=== PATIENT | female | born 1960 | race American Indian/Alaskan Native ===

== ENCOUNTER 2017-06-19 06:54 | Emergency (ER) | payer MEDICARE ==
[2017-06-19 07:00] VITALS: BP 148/89
== END 2017-06-19 06:59 | disposition left against medical advice (07) ==
LOC: ED 06:54
DX: M54.2 Cervicalgia (principal); Z53.21 Procedure and treatment not carried out due to patient leaving prior to being seen by health care provider

== ENCOUNTER 2017-06-25 06:00 | Emergency (ER) | payer MEDICARE ==
[2017-06-25 06:06] VITALS: BP 125/74
--- NOTE | 2017-06-25 08:42 | Emergency Department Report ---
ED Fall HPI - General Chief Complaint: Fall Stated Complaint: FALL Time Seen by Provider: 06/25/17 08:21 Source: patient, family Mode of arrival: Ambulatory Limitations: No Limitations - History of Present Illness Initial Comments: Patient reported that she fell off a ladder 10 feet 1 week ago. She says she came to the hospital but she could not wait so she left. She is complaining that her neck and her shoulders hurting. Pain is 4 out of 10. She says she doesn't feel like anything is broken and she doesn't want any x-ray she just wants to be checked out and some medication for her pain. Denies any numbness or tingling to extremities. Denies any pain to her back. Pain is achy in. She says she took [id number] pain medication but it has not helped.. Denies any head injury, loss of consciousness, blurred vision, dizziness. She said when she fell she fell on her left shoulder area. She said the pain is intermittent and worse with movement and less with resting. Patient has a history of depression and migraine headache. He also has a history of arthritis that she said it's all over and she says she usually takes hydrocodone , Flexeril and tramadol. Denies any loss of bowel or bladder control. It is located to the left side of her neck and left shoulder and left hand. Complaint: fall Onset/Timin -: week(s) Fall From: other (10 feet off ladder) When Fall Occurred: other (1 week ago) Fall Witnessed: yes, by family Place Fall Occurred: home Loss of Consciousness: none Prolonged Down Time?: no Symptoms Prior to Fall: none Location: neck Location - Extremities: Left: Shoulder, Hand Severity: mild Severity scale (0 -10): 3 Quality: aching Context: tripped/slipped Associated Symptoms: neck pain. denies: headache, numbness, weakness, chest paint, shortness of breath, abdominal pain, hematuria, unable to walk, lightheaded, vertigo, confusion - Related Data Previous Rx's Medication Instructions Recorded Last Taken Type Diclofenac Dr [Voltaren Dr] 75 mg PO Q12H #30 tablet 11/13/13 Unknown Rx HYDROcodone/APAP 5-325 [[place] 1 each PO Q6HR PRN #20 tablet 11/13/13 Unknown Rx 5-325 mg TAB] FLUoxetine [Prozac] 20 mg PO QDAY #30 capsule 02/13/14 Unknown Rx LORazepam [Ativan] 1 mg PO TID PRN #10 tablet 02/13/14 Unknown Rx Olanzapine [Zyprexa] 15 mg PO QDAY #30 tablet 02/13/14 Unknown Rx traZODone [Desyrel] 100 mg PO HS #30 tablet 02/13/14 Unknown Rx ALBUTEROL Inhaler [ProAir HFA 2 puff IH QID PRN #1 inhalation 04/13/14 Unknown Rx Inhaler] Prednisone [Prednisone 10 mg 10 mg PO .TAPER #1 tab.ds.pk 04/13/14 Unknown Rx (6-Day Pack, 21 Tabs)] SUMAtriptan SUCCINATE [Imitrex] 25 mg PO QDAY #20 tablet 04/13/14 Unknown Rx Cyclobenzaprine [Flexeril 10 MG 10 mg PO TID PRN #20 tablet 04/21/14 Unknown Rx TAB] HYDROcodone/APAP 5-325 [[place] 1 each PO Q6HR PRN #10 tablet 04/21/14 Unknown Rx 5/325] Promethazine [Phenergan] 25 mg PO Q6H PRN #10 tablet 04/21/14 Unknown Rx Amoxicillin/K Clav Tab [Augmentin 1 tab PO Q12HR #20 tab 02/15/15 Unknown Rx 875MG TAB] Cyclobenzaprine HCl [Flexeril 5 MG 5 mg PO Q8HR #15 tablet 07/17/15 Unknown Rx TAB] traMADol [Ultram 50 MG tab] 50 mg PO Q6HR PRN #15 tablet 07/17/15 Unknown Rx traMADol [Ultram 50 MG tab] 50 mg PO Q6HR PRN 5 Days #20 tablet 06/25/17 Unknown Rx Allergies Allergy/AdvReac Type Severity Reaction Status Date / Time ibuprofen Allergy Itching Verified 04/18/14 09:37 ED Review of Systems ROS: Stated complaint: FALL Other details as noted in HPI Comment: All other systems reviewed and negative Constitutional: no symptoms reported Eyes: denies: eye pain, vision change ENT: denies: epistaxis Respiratory: no symptoms reported Cardiovascular: denies: chest pain, palpitations, dyspnea on exertion, orthopnea , edema, syncope, paroxysmal nocturnal dyspnea Gastrointestinal: denies: abdominal pain, nausea, vomiting, diarrhea, constipation Genitourinary: denies: urgency, dysuria, frequency, hematuria, discharge Musculoskeletal: arthralgia, myalgia. denies: back pain Skin: denies: rash Neurological: denies: headache, weakness, numbness, paresthesias, confusion, abnormal gait, vertigo ED Past Medical Hx - Past Medical History Previous Medical History?: Yes Hx Headaches / Migraines: Yes Hx Psychiatric Treatment: Yes (depression) Additional medical history: depression - Surgical History Past Surgical History?: Yes Additional Surgical History: Tubal ligation - Family History Family history: no significant - Social History Smoking Status: Current Every Day Smoker Substance Use Type: None - Medications Home Medications: Home Medications Medication Instructions Recorded Confirmed Last Taken Type Diclofenac Dr [Chivo Dr] 75 mg PO Q12H #30 tablet 11/13/13 07/05/15 Unknown Rx HYDROcodone/APAP 5-325 [[place] 1 each PO Q6HR PRN #20 tablet 11/13/13 07/05/15 Unknown Rx 5-325 mg TAB] FLUoxetine [Prozac] 20 mg PO QDAY #30 capsule 02/13/14 07/05/15 Unknown Rx LORazepam [Ativan] 1 mg PO TID PRN #10 tablet 02/13/14 07/05/15 Unknown Rx Olanzapine [Zyprexa] 15 mg PO QDAY #30 tablet 02/13/14 07/05/15 Unknown Rx traZODone [Desyrel] 100 mg PO HS #30 tablet 02/13/14 07/05/15 Unknown Rx ALBUTEROL Inhaler [ProAir HFA 2 puff IH QID PRN #1 inhalation 04/13/14 07/05/15 Unknown Rx Inhaler] Prednisone [Prednisone 10 mg 10 mg PO .TAPER #1 tab.ds.pk 04/13/14 07/05/15 Unknown Rx (6-Day Pack, 21 Tabs)] SUMAtriptan SUCCINATE [Imitrex] 25 mg PO QDAY #20 tablet 04/13/14 07/05/15 Unknown Rx Cyclobenzaprine [Flexeril 10 MG 10 mg PO TID PRN #20 tablet 04/21/14 07/05/15 Unknown Rx TAB] HYDROcodone/APAP 5-325 [[place] 1 each PO Q6HR PRN #10 tablet 04/21/14 07/05/15 Unknown Rx 5/325] Promethazine [Phenergan] 25 mg PO Q6H PRN #10 tablet 04/21/14 07/05/15 Unknown Rx Amoxicillin/K Clav Tab [Augmentin 1 tab PO Q12HR #20 tab 02/15/15 07/05/15 Unknown Rx 875MG TAB] Cyclobenzaprine HCl [Flexeril 5 MG 5 mg PO Q8HR #15 tablet 07/17/15 Unknown Rx TAB] traMADol [Ultram 50 MG tab] 50 mg PO Q6HR PRN #15 tablet 07/17/15 Unknown Rx traMADol [Ultram 50 MG tab] 50 mg PO Q6HR PRN 5 Days #20 tablet 06/25/17 Unknown Rx ED Physical Exam - General Limitations: No Limitations General appearance: alert, in no apparent distress - Head Head exam: Present: atraumatic, normocephalic, normal inspection - Expanded Head Exam Expanded Head exam: Absent: laceration, abrasion, contusion, hematoma, racoon eyes, paul's sign, general tenderness, tenderness of temporal artery, CSF rhinorrhea , CSF otorrhea - Eye Eye exam: Present: normal appearance, PERRL, EOMI. Absent: periorbital swelling , periorbital tenderness Pupils: Present: normal accommodation - ENT ENT exam: Present: normal exam, normal orophraynx, mucous membranes moist - Neck Neck exam: Present: normal inspection, tenderness, meningismus, full ROM, other (C-spine tenderness). Absent: lymphadenopathy, thyromegaly - Expanded Neck Exam Expanded Neck exam: Absent: tenderness, midline deformity, anterior neck swelling, thyroid mass, carotid bruit, tracheal deviation - Respiratory Respiratory exam: Present: normal lung sounds bilaterally. Absent: respiratory distress, chest wall tenderness - Cardiovascular Cardiovascular Exam: Present: regular rate, normal rhythm, normal heart sounds. Absent: systolic murmur, diastolic murmur - GI/Abdominal GI/Abdominal exam: Present: soft, normal bowel sounds. Absent: distended, tenderness, guarding, rebound, rigid - Extremities Exam Extremities exam: Present: normal inspection, full ROM, normal capillary refill , other (clubbing, cyanosis or edema. +2 pulses all extremities. No neurovascular compromise. No joint effusion, crepitus or deformity. No laceration, contusion or ecchymotic area to extremities. Less 2/2 pulses in all extremities.). Absent: tenderness, pedal edema, joint swelling, calf tenderness - Expanded Upper Extremity Exam Left General: Present: normal inspection. Absent: laceration, abrasion, nail injury (#), foreign body, amputation, avulsion Shoulder Exam: Present: normal inspection, full ROM. Absent: tenderness, swelling, abrasion, laceration, ecchymosis, deformity, crepidus, dislocation, erythema, tenderness over AC joint Upper Arm exam: Present: normal inspection, full ROM. Absent: tenderness, swelling, abrasion, laceration, ecchymosis, deformity, crepidus, dislocation, erythema Elbow exam: Present: normal inspection, full ROM. Absent: tenderness, swelling , abrasion, laceration, ecchymosis, deformity, crepidus, dislocation, erythema, effusion, pain w/ pronation/supination, tenderness over radial head Forearm Wrist exam: Present: normal inspection, full ROM. Absent: tenderness, swelling, abrasion, laceration, ecchymosis, deformity, crepidus, dislocation, erythema, tenderness over anatomical snuff box, pain with axial thumb loading Hand Wrist exam: Present: normal inspection, full ROM. Absent: tenderness, swelling, abrasion, laceration, ecchymosis, deformity, crepidus, dislocation, erythema, amputation, nail avulsion, subungual hematoma Neuro motor exam: Present: wrist extension intact, thumb opposition intact, thumb IP flexion intact, thumb adduction intact, fingers 2-5 abduction intact Neurosensory exam: Present: 2-point discrimination, radial nerve intact, ulnar nerve intact, median nerve intact Vascular: Present: normal capillary refill, radial pulse, brachial pulse, ulnar pulse. Absent: vascular compromise, Pallo, pulse deficit radial art, pulse deficit ulnar art, pulse deficit brachial art - Back Exam Back exam: Present: normal inspection, full ROM, other (patient ambulate without any difficulties). Absent: tenderness, CVA tenderness (R), CVA tenderness (L), muscle spasm, paraspinal tenderness, vertebral tenderness, rash noted - Expanded Back Exam Expanded Back exam: Absent: saddle anesthesia Back exam: Negative Straight Leg Raising: Left - Neurological Exam Neurological exam: Present: alert, oriented X3, normal gait, reflexes normal. Absent: motor sensory deficit - Expanded Neurological Exam Expanded Neurological exam: Absent: innattentive, ataxia, receptive aphasia, expressive aphasia, total aphasia, tremor, protecting the airway Patient oriented to: Present: person, place, time Speech: Present: fluid speech Cranial nerves: EOM's Intact: Normal, Gag Reflex: Normal, Tongue Deviation: Normal, Nystagmus: Normal, Facial Sensation: Normal Cerebellar function: Finger to Nose: Normal, Romberg: Normal Upper motor neuron: Pronator Drift: Normal, Sensory Extinction: Normal Sensory exam: Upper Extremity Light Touch: Normal, Upper Extremity Pin Prick: Normal, Upper Extremity Temperature: Normal, UE 2 Point Discrimination: Normal, Lower Extremity Light Touch: Normal, Lower Extremity Pin Prick: Normal, Lower Extremity Temperature: Normal, LE 2 Point Discrimination: Normal Motor strength exam: RUE: 5, LUE: 5, RLE: 5, LLE: 5 DTR: bicep (R): 2+, bicep (L): 2+, tricep (R): 2+, tricep (L): 2+, knee (R): 2+ , knee (L): 2+, ankle (R): 2+, ankle (L): 2+ Best Eye Response ([place]): (4) open spontaneously Best Motor Response ([place]): (6) obeys commands Best Verbal Response ([place]): (5) oriented [place] Total: 15 - Psychiatric Psychiatric exam: Present: normal affect, normal mood - Skin Skin exam: Present: warm, dry, intact, normal color. Absent: rash ED Course Vital Signs 06/25/17 06/25/17 06:03 09:40 Temperature 98.0 F Pulse Rate 84 Respiratory 20 Rate Blood Pressure 125/74 O2 Sat by Pulse 100 Oximetry - Reevaluation(s) Reevaluation #1: 06/25/17 09:49 She received Ultram 50 mg by mouth prior to discharge. She is stable in no acute distress ED Medical Decision Making - Medical Decision Making ED course: Patient here reports that she fell off a ladder last week and injured her left shoulder, hand and left neck. She says she came to the emergency room and she left because it was too busy. Patient is here she said she wanted something for pain but did not want any x-ray. She is able to ambulate without any difficulties. Neurologically she is intact. Back exam is normal in her neck exam is normal. No signs of contusion or ecchymotic area to her body. She has full range of motion to all extremities with +5/5 strength in all extremities. Her joints are intact without any abnormalities. Patient was given 50 mg of Ultram in emergency room and discharged home with her family in stable condition with prescription for Ultram. She knows she needs to follow up with orthopedic doctor if she continues to have pain. Critical care attestation.: If time is entered above; I have spent that time in minutes in the direct care of this critically ill patient, excluding procedure time. ED Disposition Clinical Impression: Arthralgia of multiple sites, Neck pain Fall, accidental Qualifiers: Encounter type: initial encounter Qualified Code(s): W19.XXXA - Unspecified fall, initial encounter Disposition: TO HOME OR SELFCARE Is pt being admited?: No Does the pt Need Aspirin: No Condition: Stable Instructions: Musculoskeletal Pain (ED), Arthralgia (ED), Fall Prevention (ED) Additional Instructions: please follow-up with orthopedics who is the orthopedic doctor in 2-[address] heavy machinery while taking Ultram as this medication causes drowsiness Prescriptions: traMADol [Ultram 50 MG tab] 50 mg PO Q6HR PRN 5 Days #20 tablet PRN Reason: Pain Referrals: PRIMARY CAREMD [Primary Care Provider] - 3-5 Days JUSTIN LOVETT MD [Staff Physician] - 3-5 Days Forms: Work/School Release Form(ED)
[2017-06-25] MEDS ORDERED: ULTRAM PO ONE (09:47)
[2017-06-25] MEDS ORDERED: ULTRAM ONE (09:49)
== END 2017-06-25 10:04 | disposition home or self-care (01) ==
LOC: ED 06:00
DX: M25.512 Pain in left shoulder (principal); M54.2 Cervicalgia; G43.909 Migraine, unspecified, not intractable, without status migrainosus; F17.200 Nicotine dependence, unspecified, uncomplicated; Z88.6 Allergy status to analgesic agent; W11.XXXA Fall on and from ladder, initial encounter; Y93.89 Activity, other specified; Y99.8 Other external cause status; Y92.098 Other place in other non-institutional residence as the place of occurrence of the external cause
CPT/HCPCS: 99282

== ENCOUNTER 2017-08-28 04:03 | Emergency (ER) | payer MEDICARE ==
[2017-08-28] MEDS ORDERED: ASPIRIN PO ONE (04:19)
[2017-08-28 05:22] LABS: Basophils # (Auto) 0.1 K/mm3 (0.0-0.1); Basophils % (Auto) 0.7 % (0.0-1.8); Eosinophils # (Auto) 0.3 K/mm3 (0.0-0.4); Eosinophils % (Auto) 4.2 % (0.0-4.3); Hematocrit 38.4 % (30.3-42.9); Hemoglobin 13.1 gm/dl (10.1-14.3); Lymphocytes # (Auto) 2.2 K/mm3 (1.2-5.4); Lymphocytes % (Auto) 27.9 % (13.4-35.0); Mean Corpuscular HGB Conc 34 % (30-34); Mean Corpuscular Hemoglobin 33 pg (28-32); Mean Corpuscular Volume 97 fl (79-97); Monocytes # (Auto) 0.7 K/mm3 (0.0-0.8); Monocytes % (Auto) 8.4 % (0.0-7.3); Platelet Count 223 K/mm3 (140-440); Red Blood Count 3.96 M/mm3 (3.65-5.03); Red Cell Distribution Width 12.6 % (13.2-15.2)
[2017-08-28 05:34] LABS: BUN/Creatinine Ratio 20; Blood Urea Nitrogen 18 mg/dL (7-17); Calcium 9.2 mg/dL (8.4-10.2); Hemolysis Index 3
--- NOTE | 2017-08-28 15:01 | Emergency Department Report ---
HPI - General Chief Complaint: Chest Pain Time Seen by Provider: 08/28/17 14:04 - HPI HPI: The patient is a 56-year-old female who presents for evaluation of pain in mental health. The patient reports left-sided chest pain and abdominal pain since last night, approx 12 hours prior to my evaluation, 910 severity, burning and sharp in quality, worse with deep breaths. She states that she w is concerned that her has been poisoning her for the past 2 weeks. She has experienced severe worrying and sadness secondary to her pulses well. She admits this patient's suicidal ideations and a plan to walk out into traffic. The patient denies fever, headache, unexplained weight loss or weight gain, heat or cold intolerance, skin, hair, or nail changes, neuro deficits, homicidal ideations, or auditory or visual hallucinations, cough, dyspnea, hemoptysis, unilateral leg swelling, recent immobilization, history of DVT or PE , recent cancer, history of familial coagulation disorder. ED Past Medical Hx - Past Medical History Previous Medical History?: Yes Hx Headaches / Migraines: Yes Hx Psychiatric Treatment: Yes (depression) Additional medical history: depression - Surgical History Past Surgical History?: Yes Additional Surgical History: Tubal ligation - Social History Smoking Status: Current Every Day Smoker Substance Use Type: None - Medications Home Medications: Home Medications Medication Instructions Recorded Confirmed Last Taken Type Diclofenac Dr [Chivo Ndiaye] 75 mg PO Q12H #30 tablet 11/13/13 07/05/15 Unknown Rx HYDROcodone/APAP 5-325 [[place] 1 each PO Q6HR PRN #20 tablet 11/13/13 07/05/15 Unknown Rx 5-325 mg TAB] FLUoxetine [Prozac] 20 mg PO QDAY #30 capsule 02/13/14 07/05/15 Unknown Rx LORazepam [Ativan] 1 mg PO TID PRN #10 tablet 02/13/14 07/05/15 Unknown Rx Olanzapine [Zyprexa] 15 mg PO QDAY #30 tablet 02/13/14 07/05/15 Unknown Rx traZODone [Desyrel] 100 mg PO HS #30 tablet 02/13/14 07/05/15 Unknown Rx ALBUTEROL Inhaler [ProAir HFA 2 puff IH QID PRN #1 inhalation 04/13/14 07/05/15 Unknown Rx Inhaler] Prednisone [Prednisone 10 mg 10 mg PO .TAPER #1 tab.ds.pk 04/13/14 07/05/15 Unknown Rx (6-Day Pack, 21 Tabs)] SUMAtriptan SUCCINATE [Imitrex] 25 mg PO QDAY #20 tablet 04/13/14 07/05/15 Unknown Rx Cyclobenzaprine [Flexeril 10 MG 10 mg PO TID PRN #20 tablet 04/21/14 07/05/15 Unknown Rx TAB] HYDROcodone/APAP 5-325 [[place] 1 each PO Q6HR PRN #10 tablet 04/21/14 07/05/15 Unknown Rx 5/325] Promethazine [Phenergan] 25 mg PO Q6H PRN #10 tablet 04/21/14 07/05/15 Unknown Rx Amoxicillin/K Clav Tab [Augmentin 1 tab PO Q12HR #20 tab 02/15/15 07/05/15 Unknown Rx 875MG TAB] Cyclobenzaprine HCl [Flexeril 5 MG 5 mg PO Q8HR #15 tablet 07/17/15 Unknown Rx TAB] traMADol [Ultram 50 MG tab] 50 mg PO Q6HR PRN #15 tablet 07/17/15 Unknown Rx traMADol [Ultram 50 MG tab] 50 mg PO Q6HR PRN 5 Days #20 tablet 06/25/17 Unknown Rx ED Review of Systems ROS: Stated complaint: ABDOMINAL PAIN Other details as noted in HPI Constitutional: denies: fever ENT: denies: throat or neck pain Respiratory: denies: cough, shortness of breath Cardiovascular: reports chest pain Endocrine: denies unexplained weight loss or gain Gastrointestinal: denies: abdominal pain, nausea Genitourinary: denies: dysuria Musculoskeletal: denies: leg swelling Skin: denies: rash Neurological: denies: headache Hematological/Lymphatic: denies: easy bleeding or easy bruising Psych: reports sadness or hopelessness Physical Exam - Physical Exam Vital Signs: Vital Signs 08/28/17 08/28/17 04:05 04:19 Temperature 98.2 F 98.2 F Pulse Rate 83 74 Respiratory 18 18 Rate Blood Pressure 139/88 139/88 O2 Sat by Pulse 98 98 Oximetry Physical Exam: General: well-nourished, well-developed, no acute distress Head: Normocephalic, atraumatic Eyes: normal sclera ENT: Mucous membranes are pink and moist Neck: trachea midline, neck supple, No neck stiffness, no cervical adenopathy Respiratory: Breath sounds equal bilaterally, no wheezing, rales, or rhonchi Cardio: S1 and S2 present, no murmurs, rubs, gallops, capillary refill is brisk Abdomen: Normoactive bowel sounds, soft abdomen, no rigidity, no guarding or rebound tenderness Chest WALL/Back: No tenderness to palpation of the chest wall, no CVA tenderness with percussion Musc: No pitting edema Skin: No rash Neuro: no facial drooping, normal speech Psych: Flat affect, poor insight, delusional, positive suicidal ideation ED Course Vital Signs 08/28/17 08/28/17 04:05 04:19 Temperature 98.2 F 98.2 F Pulse Rate 83 74 Respiratory 18 18 Rate Blood Pressure 139/88 139/88 O2 Sat by Pulse 98 98 Oximetry ED Medical Decision Making - Lab Data Result diagrams: 08/28/17 04:35 08/28/17 04:35 - Medical Decision Making The patient was seen and examined by myself. The patient is placed on a compensation administrator and continuous pulse ox. On initial evaluation, the patient was found to be in no distress. EKG was negative for findings suggestive of acute cardiac infarct. Labs and imaging are obtained. Chest x-ray is negative for pneumothorax, focal consolidation, pulmonary vascular congestion, pleural effusion, or other obvious acute cardiopulmonary disease process. Lab results exhibited mildly elevated Tylenol level although within normal limits. Were non-concerning including levels of troponin, WBC, hemoglobin, hematocrit, electrolytes, renal function. The patient is medically clear. Mental health is consulted. Mental health evaluates the patient and agrees that the patient is at risk of harm to self. A 1013 is completed. The patient will be admitted to a psychiatric facility once bed placement is obtained. Critical care attestation.: If time is entered above; I have spent that time in minutes in the direct care of this critically ill patient, excluding procedure time. ED Disposition Clinical Impression: Suicidal ideation Unintentional Tylenol overdose Qualifiers: Encounter type: initial encounter Qualified Code(s): T39.1X1A - Poisoning by 4- Aminophenol derivatives, accidental (unintentional), initial encounter Disposition: [id number] HOSP/PSY UNIT Is pt being admited?: No Does the pt Need Aspirin: No Condition: Serious Referrals: PRIMARY CARE, [Primary Care Provider] - 3-5 Days Time of Disposition: 05:34
[2017-08-28 15:02] LABS: Bacteria,Urine 1+ /HPF (Negative); Bilirubin,Urine NEG (Negative); Blood,Urine NEG (Negative); Color,Urine Yellow (Yellow); Mucus,Urine 3+ /HPF; Nitrite,Urine NEG (Negative)
[2017-08-28 15:11] LABS: Amphetamine Screen,Urine PRESUMPTIVE NEGATIVE; Benzodiazepines Screen,Urine PRESUMPTIVE NEGATIVE; Cannabinoid Screen,Urine PRESUMPTIVE NEGATIVE; Methadone Screen,Urine PRESUMPTIVE NEGATIVE; Opiate Screen,Urine PRESUMPTIVE NEGATIVE
[2017-08-28 15:25] LABS: Cocaine Screen,Urine PRESUMPTIVE POSITIVE
[2017-08-29 02:07] VITALS: BP 121/69
== END 2017-08-29 02:07 ==
LOC: ED 04:03
DX: T39.1X1A Poisoning by 4-Aminophenol derivatives, accidental (unintentional), initial encounter (principal); F32.9 Major depressive disorder, single episode, unspecified; F17.200 Nicotine dependence, unspecified, uncomplicated; G43.909 Migraine, unspecified, not intractable, without status migrainosus; Y92.89 Other specified places as the place of occurrence of the external cause
CPT/HCPCS: 36415; 80048; 80307; 81001; 84484; 84703; 85025; 93005; 93010; 99285; G0480; 80320

== ENCOUNTER 2017-10-22 12:24 | Emergency (ER) | payer MEDICARE ==
[2017-10-22 13:22] VITALS: BP 133/81
--- NOTE | 2017-10-22 14:44 | Emergency Department Report ---
ED Allergic Reaction HPI - General Chief complaint: Extremity Problem,Nontraumatic Stated complaint: BILATERAL HAND NUMBNESS/PAIN Time Seen by Provider: 10/22/17 14:32 Source: patient Mode of arrival: Ambulatory Limitations: No Limitations - History of Present Illness Initial Comments: Patient is a 56-year-old ethnic females presented with bilateral hand pain. Patient states her hands ache and started have some swelling over the past 2. Patient denies any injury. Patient also states she fell from a ladder approximately a month ago still has some trapezius pain and some pain in her upper arms. Patient states pain is 6 out of 10 in severity. Patient states she has been on Motrin and Toradol without any relief. These were given by another emergency department would not give her narcotics. Patient denies any other injuries at this time. Patient denies any fevers chills nausea vomiting diarrhea at this time. - Related Data Previous Rx's Medication Instructions Recorded Last Taken Type Diclofenac Dr [Voltaren Dr] 75 mg PO Q12H #30 tablet 11/13/13 Unknown Rx HYDROcodone/APAP 5-325 [[place] 1 each PO Q6HR PRN #20 tablet 11/13/13 Unknown Rx 5-325 mg TAB] FLUoxetine [Prozac] 20 mg PO QDAY #30 capsule 02/13/14 Unknown Rx LORazepam [Ativan] 1 mg PO TID PRN #10 tablet 02/13/14 Unknown Rx Olanzapine [Zyprexa] 15 mg PO QDAY #30 tablet 02/13/14 Unknown Rx traZODone [Desyrel] 100 mg PO HS #30 tablet 02/13/14 Unknown Rx ALBUTEROL Inhaler [ProAir HFA 2 puff IH QID PRN #1 inhalation 04/13/14 Unknown Rx Inhaler] Prednisone [Prednisone 10 mg 10 mg PO .TAPER #1 tab.ds.pk 04/13/14 Unknown Rx (6-Day Pack, 21 Tabs)] SUMAtriptan SUCCINATE [Imitrex] 25 mg PO QDAY #20 tablet 04/13/14 Unknown Rx Cyclobenzaprine [Flexeril 10 MG 10 mg PO TID PRN #20 tablet 04/21/14 Unknown Rx TAB] HYDROcodone/APAP 5-325 [[place] 1 each PO Q6HR PRN #10 tablet 04/21/14 Unknown Rx 5/325] Promethazine [Phenergan] 25 mg PO Q6H PRN #10 tablet 04/21/14 Unknown Rx Amoxicillin/K Clav Tab [Augmentin 1 tab PO Q12HR #20 tab 02/15/15 Unknown Rx 875MG TAB] Cyclobenzaprine HCl [Flexeril 5 MG 5 mg PO Q8HR #15 tablet 07/17/15 Unknown Rx TAB] traMADol [Ultram 50 MG tab] 50 mg PO Q6HR PRN #15 tablet 07/17/15 Unknown Rx traMADol [Ultram 50 MG tab] 50 mg PO Q6HR PRN 5 Days #20 tablet 06/25/17 Unknown Rx methOCARBAMOL [Robaxin TAB] 500 mg PO Q6H PRN #15 tablet 10/22/17 Unknown Rx Allergies Allergy/AdvReac Type Severity Reaction Status Date / Time ibuprofen Allergy Itching Verified 04/18/14 09:37 ED Review of Systems ROS: Stated complaint: BILATERAL HAND NUMBNESS/PAIN Other details as noted in HPI Comment: All other systems reviewed and negative ED Past Medical Hx - Past Medical History Hx Headaches / Migraines: Yes Hx Psychiatric Treatment: Yes (depression) Additional medical history: depression - Surgical History Additional Surgical History: Tubal ligation - Social History Smoking Status: Never Smoker Substance Use Type: None - Medications Home Medications: Home Medications Medication Instructions Recorded Confirmed Last Taken Type Diclofenac Dr [[place]] 75 mg PO Q12H #30 tablet 11/13/13 07/05/15 Unknown Rx HYDROcodone/APAP 5-325 [[place] 1 each PO Q6HR PRN #20 tablet 11/13/13 07/05/15 Unknown Rx 5-325 mg TAB] FLUoxetine [Prozac] 20 mg PO QDAY #30 capsule 02/13/14 07/05/15 Unknown Rx LORazepam [Ativan] 1 mg PO TID PRN #10 tablet 02/13/14 07/05/15 Unknown Rx Olanzapine [Zyprexa] 15 mg PO QDAY #30 tablet 02/13/14 07/05/15 Unknown Rx traZODone [Desyrel] 100 mg PO HS #30 tablet 02/13/14 07/05/15 Unknown Rx ALBUTEROL Inhaler [ProAir HFA 2 puff IH QID PRN #1 inhalation 04/13/14 07/05/15 Unknown Rx Inhaler] Prednisone [Prednisone 10 mg 10 mg PO .TAPER #1 tab.ds.pk 04/13/14 07/05/15 Unknown Rx (6-Day Pack, 21 Tabs)] SUMAtriptan SUCCINATE [Imitrex] 25 mg PO QDAY #20 tablet 04/13/14 07/05/15 Unknown Rx Cyclobenzaprine [Flexeril 10 MG 10 mg PO TID PRN #20 tablet 04/21/14 07/05/15 Unknown Rx TAB] HYDROcodone/APAP 5-325 [[place] 1 each PO Q6HR PRN #10 tablet 04/21/14 07/05/15 Unknown Rx 5/325] Promethazine [Phenergan] 25 mg PO Q6H PRN #10 tablet 04/21/14 07/05/15 Unknown Rx Amoxicillin/K Clav Tab [Augmentin 1 tab PO Q12HR #20 tab 02/15/15 07/05/15 Unknown Rx 875MG TAB] Cyclobenzaprine HCl [Flexeril 5 MG 5 mg PO Q8HR #15 tablet 07/17/15 Unknown Rx TAB] traMADol [Ultram 50 MG tab] 50 mg PO Q6HR PRN #15 tablet 07/17/15 Unknown Rx traMADol [Ultram 50 MG tab] 50 mg PO Q6HR PRN 5 Days #20 tablet 06/25/17 Unknown Rx methOCARBAMOL [Robaxin TAB] 500 mg PO Q6H PRN #15 tablet 10/22/17 Unknown Rx ED Physical Exam - General Limitations: No Limitations General appearance: alert, in no apparent distress - Head Head exam: Present: atraumatic, normocephalic - Eye Eye exam: Present: normal appearance - ENT ENT exam: Present: mucous membranes moist - Neck Neck exam: Present: normal inspection - Respiratory Respiratory exam: Present: normal lung sounds bilaterally. Absent: respiratory distress - Cardiovascular Cardiovascular Exam: Present: regular rate, normal rhythm. Absent: systolic murmur, diastolic murmur, rubs, gallop - GI/Abdominal GI/Abdominal exam: Present: soft, normal bowel sounds - Extremities Exam Extremities exam: Present: normal inspection, full ROM, joint swelling (patient has some mild swelling to the bilateral MCP joints.) - Back Exam Back exam: Present: normal inspection - Neurological Exam Neurological exam: Present: alert, oriented X3 - Psychiatric Psychiatric exam: Present: normal affect, normal mood - Skin Skin exam: Present: warm, dry, intact, normal color. Absent: rash ED Course Vital Signs 10/22/17 13:19 Temperature 98 F Pulse Rate 75 Respiratory 16 Rate Blood Pressure 133/81 O2 Sat by Pulse 100 Oximetry ED Medical Decision Making - Medical Decision Making Patient's 56-year-old ethnic female who is presenting with arthritic type pain. Patient was made of nonmedical emergency however she does have insurance and right pericolic very. Patient will be given Robaxin as a muscle relaxant was told that she should continue with the NSAIDs. Patient will have follow-up with orthopedic. Critical care attestation.: If time is entered above; I have spent that time in minutes in the direct care of this critically ill patient, excluding procedure time. ED Disposition Clinical Impression: Hand arthritis Disposition: Z-01 MED SCREENING EXAM-CONT Is pt being admited?: No Does the pt Need Aspirin: No Condition: Stable Instructions: Rheumatoid Arthritis (ED), Osteoarthritis (ED) Prescriptions: methOCARBAMOL [Robaxin TAB] 500 mg PO Q6H PRN #15 tablet PRN Reason: Pain Referrals: JUSTIN LOVETT MD [Staff Physician] - 3-5 Days
== END 2017-10-22 14:50 | disposition home or self-care (01) ==
LOC: ED 12:24
DX: M19.042 Primary osteoarthritis, left hand (principal); M19.041 Primary osteoarthritis, right hand; G43.909 Migraine, unspecified, not intractable, without status migrainosus; F32.9 Major depressive disorder, single episode, unspecified; Z98.51 Tubal ligation status; Z88.6 Allergy status to analgesic agent
CPT/HCPCS: 99282

== ENCOUNTER 2019-02-09 23:48 | Emergency (ER) | payer MEDICARE ==
[2019-02-09 23:55] VITALS: BP 135/85
== END 2019-02-10 01:15 | disposition left against medical advice (07) ==
LOC: ED 23:48
DX: R21 Rash and other nonspecific skin eruption (principal); Z53.21 Procedure and treatment not carried out due to patient leaving prior to being seen by health care provider